=== PATIENT | male | born 1995 | race Caucasian/White ===

== ENCOUNTER 2018-09-27 12:20 | Emergency (ER) | payer BC, OTHER ==
[~2018-09-27] VITALS: Ht 180.3 cm; Wt 97.7 kg
[2018-09-27 12:21] VITALS: BP 130/72
--- NOTE | 2018-09-27 13:17 | REP ---
Clinical: Trauma. Fall. Technique: AP, lateral, bilateral oblique and sunrise views right knee . Findings: Soft tissue swelling is appreciated. The osseous structures and joint spaces are intact and normal. There is no evidence for acute fracture or dislocation. No subcutaneous emphysema or radiodense foreign body. Impression: Soft tissue swelling. No acute fracture or dislocation. Electronically Signed by Arturo Hood MD 09/27/2018 01:08 P
== END 2018-09-27 13:38 | disposition home or self-care (01) ==
LOC: M ED 12:20
DX: S80.211A Abrasion, right knee, initial encounter (principal); S80.01XA Contusion of right knee, initial encounter; W10.9XXA Fall (on) (from) unspecified stairs and steps, initial encounter; Y92.59 Other trade areas as the place of occurrence of the external cause; Y99.0 Civilian activity done for income or pay; Z88.1 Allergy status to other antibiotic agents